=== PATIENT | male | born 1990 | race Caucasian/White ===

== ENCOUNTER 2017-08-07 02:42 | Emergency (ER) | payer SELFPAY ==
[2017-08-07] MEDS ORDERED: PREDNISONE 20 MG TABLET PO ONE (04:03)
[2017-08-07] MEDS ORDERED: ALBUTEROL SULFATE 0.083% NEB 2.5 MG/3 ML AMPUL NEB ONE (04:03)
--- NOTE | 2017-08-07 04:03 | RADIOLOGY REPORT (SQ) ---
EXAM DESCRIPTION: CHEST 2 VIEWS CLINICAL HISTORY: chest pain COMPARISON: None. FINDINGS: Frontal and lateral views of the chest. The cardiomediastinal silhouette has normal size and contour. No consolidation, pneumothorax, or pleural effusion. No displaced rib fractures identified. Upper abdominal soft tissues are unremarkable. A nail is identified overlying the left chest however is not identified on second lateral view. IMPRESSION: 1. No acute pulmonary process identified.
[2017-08-07] MEDS ORDERED: ALBUTEROL SULFATE HFA (90 MCG/PUFF) 8 GM MDI (1 MDI/ER DISP) IH PRN (04:43)
--- NOTE | 2017-08-07 04:44 | ER Document Report ---
ED Cardiac - General Chief Complaint: Chest Pain Stated Complaint: ABDOMINAL PAIN/ CHEST PAIN Time Seen by Provider: 08/07/17 03:09 TRAVEL OUTSIDE OF THE [place] IN LAST 30 DAYS: No - Related Data Allergies/Adverse Reactions: NSAIDS (Non-Steroidal Anti-Inflamma Allergy (Verified 08/07/17 02:49) Past Medical History - Social History Smoking Status: Current Every Day Smoker Patient has suicidal ideation: No Patient has homicidal ideation: No Renal/ Medical History: Denies: Hx Peritoneal Dialysis Physical Exam - Vital signs Vitals: Temp Pulse Resp BP Pulse Ox 97.6 F 103 H 18 152/107 H 98 08/07/17 02:56 08/07/17 02:56 08/07/17 02:56 08/07/17 02:56 08/07/17 02:56 Course - Vital Signs Vital signs: Temp Pulse Resp BP Pulse Ox 97.6 F 103 H 18 152/107 H 98 08/07/17 02:56 08/07/17 02:56 08/07/17 02:56 08/07/17 02:56 08/07/17 02:56 Discharge - Discharge Clinical Impression: Bronchitis Condition: Stable Disposition: HOME, SELF-CARE Instructions: Bronchitis With Bronchospasm (Wheezing) ([facility]) Additional Instructions: Return immediately for any new or worsening symptoms. Follow up with primary care provider, call tomorrow to make followup appointment. Prescriptions: Prednisone [Deltasone 20 mg Tablet] 3 tab PO DAILY 5 Days tablet
[2017-08-07 05:02] VITALS: BP 128/75
--- NOTE | 2017-08-07 20:09 | EKG REPORT ---
SEVERITY:- ABNORMAL ECG - SINUS RHYTHM PROBABLE LEFT VENTRICULAR HYPERTROPHY INFERIOR Q WAVES, PROBABLY NORMAL VARIATION LATERAL Q WAVES, PROBABLY NORMAL VARIATION : Confirmed by: Alie Bland 07-Aug-2017 20:08:10
== END 2017-08-07 05:02 | disposition home or self-care (01) ==
LOC: ER 02:42
DX: J40 Bronchitis, not specified as acute or chronic (principal); R07.9 Chest pain, unspecified; R10.9 Unspecified abdominal pain; F17.200 Nicotine dependence, unspecified, uncomplicated
CPT/HCPCS: 93005; 94640; 99283; 71046; 93010; J7512; J3490